=== PATIENT | male | born 1965 | race African-American/Black ===

== ENCOUNTER 2018-04-02 17:16 | Inpatient (IN) | payer SELFPAY ==
[~2018-04-02] VITALS: Ht 172.7 cm; Wt 76.7 kg
[2018-04-02] VITALS (10 sets, daily range): BP systolic 126–221; BP diastolic 75–105
[2018-04-02] MEDS ORDERED: Etomidate 40mg/20ml Inj IV ONE (17:30)
--- NOTE | 2018-04-02 17:34 | Emergency Room Report ---
History of Present Illness General Chief Complaint: Overdose Source: Patient, EMS Present Illness HPI Patient's eyes rolled back at the [facility] and then he became unresponsive. Paramedics found him with pinpoint pupils and gave Narcan. He "woke up" at that time and was combative but not following commands. He tore out the IVs and also need to be restrained. At that time he was given 10 mg of Versed. After that he gradually became unresponsive again.. Little other history is available on the patient. Unknown if drug usage or alcohol Some suggestion that he might have been carrying a gun. (None found) (See clinical course) Allergies: Coded Allergies: UNABLE TO ASSESS (Unverified , 04/02/18) Patient History Limited by: medical condition Past Medical History: see triage record Social History: Reports: drug use - THC; Denies: smoking Social History Narrative lives with sig other Reviewed Nursing Documentation: PMH: Agreed; PSxH: Agreed Nursing Documentation-PMH Past Medical History Deferred: Patient Unconscious Past Medical History: Deferred Review of Systems All Other Systems: limited Physical Exam Vital Signs Date Time Temp Pulse Resp B/P (MAP) Pulse Ox O2 Delivery O2 Flow Rate FiO2 04/02/18 17:15 97.5 78 24 138/75 100 Room Air 97.5 Sp02 EP Interpretation: reviewed, normal General Appearance: Stupor Head: normocephalic, atraumatic Eyes: bilateral eye PERRL, bilateral eye Scleral Injection ENT: moist mucus membranes - no gag Neck: supple Respiratory: lungs clear, normal breath sounds Cardiovascular #1: regular rate, rhythm Cardiovascular #2: 2+ radial (R) Gastrointestinal: normal inspection, non tender, no mass, non-distended, decreased bowel sounds Musculoskeletal: back normal, other - flaccid Neurologic: no Babinski - not respond, other - not respond to pain, flaccid, no gag Psychiatric: other - stupor Reflexes: 0 knee (R), 0 knee (L) Skin: normal inspection, warm/dry Procedures Critical Care Time Critical Care Time Total Critical Care Time: 60 min bedside evaluation and treatment excludes procedures (EKG, intubation). Reason for critical care: stupor, intubation, sedation, repeated evaluations Possible complications: hypotension, hypertension, MT, shock, arrhythmias, metabolic acidosis, end organ damage, respiratory failure. Interventions: intubation, sedation, antibiotics, repeat evaluations, further history from EMS and family, discussion with admitting MDs Course: Patient presented with alleged OD and "agitated delirium" post narcan and versed. Lack of airway protection - intubated. No bleed. Sedated and repeated evaluations for this. Antibiotics ordered for possible infiltrate. Family with h/o recent seizure. Keppra loaded. Sedation adequate. Discussed with admitting MD and critical care MD. Consultations: nursing staff, EMS, family, RT, pharmacy Performed by: Dr. Blake Tolerated well condition = critical Intubation Intubation : Consent: Emergent Tube Size (cm): 7.5 Medications: Etomidate Intubation Complications: no complications Post Intubation Xray: Yes Attempts: One Patient Tolerated: Well Complications: None Medical Decision Making Medical: Other Reaction to Intervention: No change Restraint Reassesment I, Sean Blake MD, have personally evaluated this patient. Laboratory tests have been ordered. The patient is deemed to present a danger to themselves and/ or others. This is based on the history provided by EMS. Patient evaluation reveals the following: stupor. These restraints were initially ordered and applied based on hx by EMS. Once patient intubated and sedated, behavioral restraints removed and non-behavioral restraints applied. Diagnostic Impression: Primary Impression: Altered level of consciousness Additional Impressions: Seizure Lack of airway protectin ER Course Patient is unresponsive and has a poor gag reflex. The patient was immediately intubated. We need to exclude bleed and other overdose. Complex history. Other considerations are seizure, syncope, PCP, other ingestions, sepsis, electrolyte abnormalities amongst others. Evaluation with EKG, labs, CXR. IV hydration. EKG without injury. CXR ET good placement. CT without bleed. Labs normal CBC , CMP. Tox + THC (benzos after versed in field and here). Antibiotics to cover possible infiltrate read by radiologist (not seen by me). Patient had propofol stopped due to low heart rate. Patient awoke and was moving all 4. Not fully responsive to commands to calm. Versed given and propofol restarted. states seen 03/17 for seizure. Signed out MELANIEA Gurdeep. No meds given. Tox screen negative for opiates. Again patient with light sedation. Propofol increased and versed repeated. ABG acceptable. Loaded with Keppra in ED. Clinical course most consistent with seizure and then post ictal event. Admit ICU, Dr. Saeed. Laboratory Tests Test 04/02/18 17:37 04/02/18 20:34 04/02/18 21:15 White Blood Count 3.9 K/UL (4.8-10.8) L Red Blood Count 4.20 M/UL (4.70-6.10) L Hemoglobin 13.6 G/DL (14.2-18.0) L Hematocrit 40.9 % (42.0-52.0) L Mean Corpuscular Volume 98 FL (80-99) Mean Corpuscular Hemoglobin 32.3 PG (27.0-31.0) H Mean Corpuscular Hemoglobin Concent 33.1 G/DL (32.0-36.0) Red Cell Distribution Width 11.8 % (11.6-14.8) Platelet Count 201 K/UL (150-450) Mean Platelet Volume 5.3 FL (6.5-10.1) L Neutrophils (%) (Auto) 53.6 % (45.0-75.0) Lymphocytes (%) (Auto) 34.4 % (20.0-45.0) Monocytes (%) (Auto) 10.0 % (1.0-10.0) Eosinophils (%) (Auto) 1.0 % (0.0-3.0) Basophils (%) (Auto) 1.0 % (0.0-2.0) Sodium Level 142 MMOL/L (136-145) Potassium Level 3.7 MMOL/L (3.5-5.1) Chloride Level 107 MMOL/L (98-107) Carbon Dioxide Level 23 MMOL/L (21-32) Anion Gap 13 mmol/L (5-15) Blood Urea Nitrogen 8 mg/dL (7-18) Creatinine 1.2 MG/DL (0.55-1.30) Estimate Glomerular Filtration Rate > 60 mL/min (>60) Glucose Level 91 MG/DL (74-106) Calcium Level 9.3 MG/DL (8.5-10.1) Total Bilirubin 0.6 MG/DL (0.2-1.0) Aspartate Amino Transferase (AST) 29 U/L (15-37) Alanine Aminotransferase (ALT) 33 U/L (12-78) Alkaline Phosphatase 76 U/L (46-116) Total Creatine Kinase 167 U/L (26-308) Troponin I 0.000 ng/mL (0.000-0.056) Total Protein 7.6 G/DL (6.4-8.2) Albumin 3.9 G/DL (3.4-5.0) Globulin 3.7 g/dL Albumin/Globulin Ratio 1.1 (1.0-2.7) Triglycerides Level 95 MG/DL (30-150) Thyroid Stimulating Hormone (TSH) 2.813 uiU/mL (0.358-3.740) Salicylates Level 6.1 ug/mL (2.8-20) Acetaminophen Level < 2 MCG/ML (10-30) L Serum Alcohol < 3 mg/dL Arterial Blood pH 7.385 (7.350-7.450) Arterial Blood Partial Pressure CO2 39.9 mmHg (35.0-45.0) Arterial Blood Partial Pressure O2 172.8 mmHg (75.0-100.0) H Arterial Blood HCO3 23.3 mmol/L (22.0-26.0) Arterial Blood Oxygen Saturation 98.9 % (92.0-98.0) H Arterial Blood Base Excess -1.5 Suman Test Positive Urine Color Pale yellow Urine Appearance Clear Urine pH 7 (4.5-8.0) Urine Specific [place] 1.010 (1.005-1.035) Urine Protein 1+ (NEGATIVE) H Urine Glucose (UA) Negative (NEGATIVE) Urine Ketones 1+ (NEGATIVE) H Urine Blood 2+ (NEGATIVE) H Urine Nitrite Negative (NEGATIVE) Urine Bilirubin Negative (NEGATIVE) Urine Urobilinogen 1 MG/DL (0.0-1.0) H Urine Leukocyte Esterase Negative (NEGATIVE) Urine RBC 2-4 /HPF (0 - 0) H Urine WBC 0-2 /HPF (0 - 0) Urine Squamous Epithelial Cells Occasional /LPF Urine Bacteria Occasional /HPF (NONE) Urine Opiates Screen Negative (NEGATIVE) Urine Barbiturates Screen Negative (NEGATIVE) Phencyclidine (PCP) Screen Negative (NEGATIVE) Urine Amphetamines Screen Negative (NEGATIVE) Urine Benzodiazepines Screen Positive (NEGATIVE) H Urine Cocaine Screen Negative (NEGATIVE) Urine Marijuana (THC) Screen Positive (NEGATIVE) H EKG Diagnostic Results Rate: normal Rhythm: NSR ST Segments: no acute changes Rhythm Strip Diag. Results EP Interpretation: yes Rhythm: NSR, no PVC's, no ectopy Chest X-Ray Diagnostic Results Chest X-Ray Diagnostic Results : Chest X-Ray Ordered: Yes # of Views/Limited/Complete: 1 View Indication: Chest Pain EP Interpretation: Yes Interpretation: no consolidation, no effusion, no pneumothorax, other - ET OK Impression: Other Electronically Signed by: Electronically signed by Sean Blake MD CT/MRI/US Diagnostic Results CT/MRI/US Diagnostic Results : Imaging Test Ordered: head Impression no bleed, mass, fx Last Vital Signs Date Time Temp Pulse Resp B/P (MAP) Pulse Ox O2 Delivery O2 Flow Rate FiO2 04/02/18 21:11 94 17 50 04/02/18 20:03 149/82 Mechanical Ventilator 04/02/18 17:30 97.6 99 Status: improved Disposition: ADMITTED INPATIENT Condition: Critical Scripts Unable to Obtain Active Prescriptions or Reported Meds Sean Blake M.D. Apr 02, 2018 17:34
[2018-04-02 18:03] LABS: HEMATOCRIT 40.9 % (42.0-52.0); HEMOGLOBIN 13.6 G/DL (14.2-18.0); LYMPHOCYTES % (AUTO) 34.4 % (20.0-45.0); MEAN CORPUSCULAR VOLUME 98 FL (80-99); NEUTROPHILS % (AUTO) 53.6 % (45.0-75.0); PLATELET COUNT 201 K/UL (150-450); RED CELL DISTRIBUTION WIDTH 11.8 % (11.6-14.8); WHITE BLOOD COUNT 3.9 K/UL (4.8-10.8)
[2018-04-02 18:20] LABS: ANION GAP 13 mmol/L (5-15); BLOOD UREA NITROGEN 8 mg/dL (7-18); CALCIUM 9.3 MG/DL (8.5-10.1); CARBON DIOXIDE 23 MMOL/L (21-32); CHLORIDE 107 MMOL/L (98-107); CREATININE 1.2 MG/DL (0.55-1.30); POTASSIUM 3.7 MMOL/L (3.5-5.1); SODIUM 142 MMOL/L (136-145)
[2018-04-02 18:34] LABS: ALANINE AMINOTRANSFERASE 33 U/L (12-78); ALBUMIN 3.9 G/DL (3.4-5.0); ALBUMIN/GLOBULIN RATIO 1.1 (1.0-2.7); ALKALINE PHOSPHATASE 76 U/L (46-116); ASPARTATE AMINO TRANSFERASE 29 U/L (15-37); BILIRUBIN,TOTAL 0.6 MG/DL (0.2-1.0); CREATINE KINASE 167 U/L (26-308); TRIGLYCERIDES 95 MG/DL (30-150)
[2018-04-02] MEDS ORDERED: Cefepime HCl 1 GM in D5W 55 ML IVPB ONE (18:45)
[2018-04-02] MEDS ORDERED: Nitroglycerin Subl 0.4mg tab SL PRN (18:45)
--- NOTE | 2018-04-02 18:45 | Pulmonolgy Critical Care Note ---
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 Critical Care - Objective Last 24 Hour Vital Signs Date Time Temp Pulse Resp B/P (MAP) Pulse Ox O2 Delivery O2 Flow Rate FiO2 04/02/18 18:39 16 210/104 Mechanical Ventilator 04/02/18 18:24 18 157/100 Mechanical Ventilator 04/02/18 17:15 97.5 78 24 138/75 100 Room Air 97.5 04/02/18 15:29 66 16 50 Status: awake, sedated Condition: critical Neck: full ROM Lungs: clear Heart: HR/BP stable, regular Abdomen: active bowel sounds Extremities: no C/C/E Critical Care - Subjective ROS Limited/Unobtainable: Yes ICU Day: 1 Condition: critical EKG Rhythm: Sinus Rhythm Vent Support Breath Rate: 16 Vent Support Mode: AC Vent Tidal Volume: 650 Sputum Amount: None PIP: 25 ET-Tube: 7.5 ET Position: 25 Labs: Laboratory Tests Test 04/02/18 17:37 White Blood Count 3.9 K/UL (4.8-10.8) L Red Blood Count 4.20 M/UL (4.70-6.10) L Hemoglobin 13.6 G/DL (14.2-18.0) L Hematocrit 40.9 % (42.0-52.0) L Mean Corpuscular Volume 98 FL (80-99) Mean Corpuscular Hemoglobin 32.3 PG (27.0-31.0) H Mean Corpuscular Hemoglobin Concent 33.1 G/DL (32.0-36.0) Red Cell Distribution Width 11.8 % (11.6-14.8) Platelet Count 201 K/UL (150-450) Mean Platelet Volume 5.3 FL (6.5-10.1) L Neutrophils (%) (Auto) 53.6 % (45.0-75.0) Lymphocytes (%) (Auto) 34.4 % (20.0-45.0) Monocytes (%) (Auto) 10.0 % (1.0-10.0) Eosinophils (%) (Auto) 1.0 % (0.0-3.0) Basophils (%) (Auto) 1.0 % (0.0-2.0) Sodium Level 142 MMOL/L (136-145) Potassium Level 3.7 MMOL/L (3.5-5.1) Chloride Level 107 MMOL/L (98-107) Carbon Dioxide Level 23 MMOL/L (21-32) Anion Gap 13 mmol/L (5-15) Blood Urea Nitrogen 8 mg/dL (7-18) Creatinine 1.2 MG/DL (0.55-1.30) Estimat Glomerular Filtration Rate > 60 mL/min (>60) Glucose Level 91 MG/DL (74-106) Calcium Level 9.3 MG/DL (8.5-10.1) Total Bilirubin 0.6 MG/DL (0.2-1.0) Aspartate Amino Transf (AST/SGOT) 29 U/L (15-37) Alanine Aminotransferase (ALT/SGPT) 33 U/L (12-78) Alkaline Phosphatase 76 U/L (46-116) Total Creatine Kinase 167 U/L (26-308) Troponin I 0.000 ng/mL (0.000-0.056) Total Protein 7.6 G/DL (6.4-8.2) Albumin 3.9 G/DL (3.4-5.0) Globulin 3.7 g/dL Albumin/Globulin Ratio 1.1 (1.0-2.7) Triglycerides Level 95 MG/DL (30-150) Thyroid Stimulating Hormone (TSH) 2.813 uiU/mL (0.358-3.740) Salicylates Level 6.1 ug/mL (2.8-20) Acetaminophen Level < 2 MCG/ML (10-30) L Serum Alcohol < 3 mg/dL Aleshia Ya MD Apr 02, 2018 18:45
[2018-04-02] MEDS ORDERED: Albuterol/Ipratropium 3ml neb HHN PRN (18:46)
[2018-04-02] MEDS ORDERED: Midazolam 2mg/2ml Inj ONE (19:00)
[2018-04-02] MEDS ORDERED: Midazolam 2mg/2ml Inj IVP ONE ×2 (19:00→20:00)
[2018-04-02] MEDS ORDERED: Midazolam 2mg/2ml Inj IVP SCH (20:00)
[2018-04-02] MEDS ORDERED: levETIRAcetam 1,000mg/NS100ml 100 ML IVPB ONE (20:15)
[2018-04-02] MEDS ORDERED: Cefepime 1gm vial ONE (21:23)
[2018-04-02 21:30] LABS: APPEARANCE,URINE CLEAR; BILIRUBIN, URINE NEGATIVE (NEGATIVE); COLOR,URINE PALE YELLOW; GLUCOSE, URINE (UA) NEGATIVE (NEGATIVE); KETONES,URINE 1+ (NEGATIVE); LEUKOCYTE ESTERASE ,URINE NEGATIVE (NEGATIVE); NITRITE,URINE NEGATIVE (NEGATIVE); PH,URINE 7 (4.5-8.0); PROTEIN,URINE 1+ (NEGATIVE); UROBILINOGEN,URINE 1 MG/DL (0.0-1.0)
[2018-04-02] MEDS: LORazepam Inj 2mg/ml 1ml IV PRN (22:25)
[2018-04-02] MEDS: D5 1/2NS 1,000 ML IV SCH (22:26)
[2018-04-02] MEDS: Heparin 5000 units/ml inj SUBQ SCH (22:34)
[2018-04-02] MEDS: Morphine Sulfate 4mg/ml Inj (IV USE ONLY) IVP PRN (23:04)
[2018-04-03] VITALS (25 sets, daily range): BP systolic 123–187; BP diastolic 55–102
[2018-04-03] MEDS: LORazepam Inj 2mg/ml 1ml IV PRN ×2 (03:23→06:00)
[2018-04-03] MEDS: Morphine Sulfate 4mg/ml Inj (IV USE ONLY) IVP PRN (03:38)
[2018-04-03 06:50] LABS: BASOPHILS % (AUTO) 0.9 % (0.0-2.0); EOSINOPHILS % (AUTO) 0.5 % (0.0-3.0); HEMATOCRIT 37.3 % (42.0-52.0); HEMOGLOBIN 12.3 G/DL (14.2-18.0); LYMPHOCYTES % (AUTO) 30.6 % (20.0-45.0); MEAN CORPUSCULAR VOLUME 95 FL (80-99); MONOCYTES % (AUTO) 10.6 % (1.0-10.0); NEUTROPHILS % (AUTO) 57.4 % (45.0-75.0); PLATELET COUNT 154 K/UL (150-450); RED BLOOD COUNT 3.93 M/UL (4.70-6.10); RED CELL DISTRIBUTION WIDTH 11.8 % (11.6-14.8); WHITE BLOOD COUNT 5.8 K/UL (4.8-10.8)
[2018-04-03 06:58] LABS: INR 1.1 (0.9-1.1)
[2018-04-03 07:30] LABS: ALANINE AMINOTRANSFERASE 45 U/L (12-78); ALBUMIN 3.1 G/DL (3.4-5.0); ALKALINE PHOSPHATASE 68 U/L (46-116); ASPARTATE AMINO TRANSFERASE 42 U/L (15-37); BILIRUBIN,DIRECT 0.2 MG/DL (0.0-0.3); BILIRUBIN,TOTAL 1.3 MG/DL (0.2-1.0); LACTATE DEHYDROGENASE 187 U/L (81-234); PHOSPHORUS 1.3 MG/DL (2.5-4.9)
--- NOTE | 2018-04-03 08:23 | Diagnostic Imaging Report ---
Indication: Shortness of breath Technique: One view of the chest Comparison: none Findings: There is atelectasis at the left lung base. There is equivocal minimal blunting of left costophrenic sulcus The heart size is normal. Endotracheal tube is in place, tip projecting approximately 4 cm above the cuauhtemoc. Impression: Satisfactory endotracheal intubation Left basilar atelectasis Equivocal minimal left costophrenic sulcus blunting; if real, could indicate a small pleural effusion
--- NOTE | 2018-04-03 08:28 | Diagnostic Imaging Report ---
Indication: Altered level of consciousness Technique: Continuous helical CT scanning of the head was performed without intravenous contrast material. Axial and coronal 5 mm sections were generated. Radiation dose was minimized using automated exposure control Dose: Total Dose Length Product - DLP 1562.[address] Dose Index - CTDIvol(s) 70.38 mGy. Comparison: none Findings: The ventricular system is normal in size and configuration. There is no shift of midline structures. No abnormal extra-axial fluid collections are noted. There is no evidence of intracerebral bleeding. No other abnormal high or low density areas are noted within the brain. Considerable mucosal thickening is seen in the posterior nasal fossa Impression: Normal CT scan of the head without contrast material. This agrees with the preliminary interpretation provided overnight by [facility] teleradiology service. The CT scanner at [facility] is accredited by the [employer] and the scans are performed using protocols designed to limit radiation exposure to as low as reasonably achievable to attain images of sufficient resolution adequate for diagnostic evaluation.
[2018-04-03] MEDS: D5 1/2NS 1,000 ML IV SCH ×2 (08:57→22:29)
--- NOTE | 2018-04-03 09:35 | Pulmonolgy Critical Care Note ---
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 Discussed with: nurses Critical Care - Objective Last 24 Hour Vital Signs Date Time Temp Pulse Resp B/P (MAP) Pulse Ox O2 Delivery O2 Flow Rate FiO2 04/03/18 09:00 69 18 144/85 (104) 100 04/03/18 08:00 35 04/03/18 08:00 98.5 70 16 148/89 (108) 100 98.5 04/03/18 08:00 66 04/03/18 07:00 72 16 123/80 (94) 100 04/03/18 06:55 71 16 45 04/03/18 06:00 62 16 153/96 (115) 100 04/03/18 06:00 45 04/03/18 05:21 62 16 45 04/03/18 05:00 62 16 147/91 (109) 100 04/03/18 04:00 Mechanical Ventilator 04/03/18 04:00 45.0 04/03/18 04:00 65 04/03/18 04:00 98.3 60 16 141/87 (105) 100 98.3 04/03/18 03:30 67 16 45 04/03/18 03:00 65 16 130/92 (105) 100 04/03/18 02:00 65 16 155/89 (111) 100 04/03/18 01:00 65 16 133/82 (99) 100 04/03/18 00:55 62 16 45 04/03/18 00:44 187/101 04/03/18 00:00 45.0 04/03/18 00:00 52 04/03/18 00:00 45 04/03/18 00:00 Mechanical Ventilator 04/03/18 00:00 97.6 52 16 187/102 (130) 100 97.6 04/02/18 23:00 49 16 205/102 (136) 100 04/02/18 22:40 43 16 45 04/02/18 22:22 58 16 183/99 100 Mechanical Ventilator 50 04/02/18 22:22 98.0 58 16 183/99 100 Mechanical Ventilator 50 04/02/18 22:12 16 183/99 Mechanical Ventilator 50 04/02/18 22:00 97.6 46 16 207/101 (136) 100 97.6 04/02/18 22:00 47 04/02/18 22:00 Mechanical Ventilator 04/02/18 22:00 Mechanical Ventilator 04/02/18 22:00 45.0 04/02/18 21:40 16 219/101 Mechanical Ventilator 45 04/02/18 21:20 56 16 170/98 100 Mechanical Ventilator 50 04/02/18 21:15 16 170/98 Mechanical Ventilator 50 04/02/18 21:11 94 17 50 04/02/18 20:20 70 16 157/83 100 Mechanical Ventilator 50 04/02/18 20:03 16 149/82 Mechanical Ventilator 50 04/02/18 19:48 16 173/97 Mechanical Ventilator 50 04/02/18 19:33 16 219/108 Mechanical Ventilator 50 04/02/18 19:30 64 18 50 04/02/18 19:30 16 219/108 Mechanical Ventilator 50 04/02/18 19:20 88 17 221/105 100 Mechanical Ventilator 50 04/02/18 19:15 16 194/90 Mechanical Ventilator 04/02/18 18:39 16 210/104 Mechanical Ventilator 04/02/18 18:24 18 157/100 Mechanical Ventilator 04/02/18 18:20 97.5 53 16 126/76 100 Mechanical Ventilator 50 97.5 04/02/18 17:30 97.6 88 20 99 Mechanical Ventilator 04/02/18 17:27 97.8 84 16 94 Room Air 04/02/18 17:20 97.5 75 24 138/75 100 Room Air 50 97.5 04/02/18 17:20 78 24 Room Air 50 04/02/18 17:15 97.5 78 24 138/75 100 Room Air 97.5 04/02/18 15:29 66 16 50 Status: awake Condition: critical HEENT: atraumatic Lungs: clear Heart: HR/BP stable, HR/BP unstable, regular Abdomen: active bowel sounds Extremities: no C/C/E, edema Micro: Microbiology Date/Time Source Procedure Growth Status 04/02/18 21:15 Rectum Received Accucheck: 73 Critical Care - Subjective ROS Limited/Unobtainable: Yes ICU Day: 2 Interval Events: awake, following commands FI02: 35 Vent Support Breath Rate: 16 Vent Support Mode: AC Vent Tidal Volume: 650 Sputum Amount: Small PIP: 16 I&O: Intake and Output 04/02/18 04/03/18 19:00 07:00 Intake Total 675 ml Output Total 770 ml Balance -95 ml Intake Oral 0 ml IV Total 675 ml Output Urine Total 770 ml Stool Total 0 ml CXR: clear ET-Tube: 7.5 ET Position: 25 Labs: Laboratory Tests Test 04/02/18 17:37 04/02/18 20:34 04/02/18 21:15 04/03/18 06:30 White Blood Count 3.9 K/UL (4.8-10.8) L 5.8 K/UL (4.8-10.8) Red Blood Count 4.20 M/UL (4.70-6.10) L 3.93 M/UL (4.70-6.10) L Hemoglobin 13.6 G/DL (14.2-18.0) L 12.3 G/DL (14.2-18.0) L Hematocrit 40.9 % (42.0-52.0) L 37.3 % (42.0-52.0) L Mean Corpuscular Volume 98 FL (80-99) 95 FL (80-99) Mean Corpuscular Hemoglobin 32.3 PG (27.0-31.0) H 31.2 PG (27.0-31.0) H Mean Corpuscular Hemoglobin Concent 33.1 G/DL (32.0-36.0) 32.8 G/DL (32.0-36.0) Red Cell Distribution Width 11.8 % (11.6-14.8) 11.8 % (11.6-14.8) Platelet Count 201 K/UL (150-450) 154 K/UL (150-450) Mean Platelet Volume 5.3 FL (6.5-10.1) L 5.4 FL (6.5-10.1) L Neutrophils (%) (Auto) 53.6 % (45.0-75.0) 57.4 % (45.0-75.0) Lymphocytes (%) (Auto) 34.4 % (20.0-45.0) 30.6 % (20.0-45.0) Monocytes (%) (Auto) 10.0 % (1.0-10.0) 10.6 % (1.0-10.0) H Eosinophils (%) (Auto) 1.0 % (0.0-3.0) 0.5 % (0.0-3.0) Basophils (%) (Auto) 1.0 % (0.0-2.0) 0.9 % (0.0-2.0) Sodium Level 142 MMOL/L (136-145) Potassium Level 3.7 MMOL/L (3.5-5.1) Chloride Level 107 MMOL/L (98-107) Carbon Dioxide Level 23 MMOL/L (21-32) Anion Gap 13 mmol/L (5-15) Blood Urea Nitrogen 8 mg/dL (7-18) Creatinine 1.2 MG/DL (0.55-1.30) Estimat Glomerular Filtration Rate > 60 mL/min (>60) Glucose Level 91 MG/DL (74-106) Calcium Level 9.3 MG/DL (8.5-10.1) Total Bilirubin 0.6 MG/DL (0.2-1.0) 1.3 MG/DL (0.2-1.0) H Aspartate Amino Transf (AST/SGOT) 29 U/L (15-37) 42 U/L (15-37) H Alanine Aminotransferase (ALT/SGPT) 33 U/L (12-78) 45 U/L (12-78) Alkaline Phosphatase 76 U/L (46-116) 68 U/L (46-116) Total Creatine Kinase 167 U/L (26-308) Troponin I 0.000 ng/mL (0.000-0.056) Total Protein 7.6 G/DL (6.4-8.2) 6.2 G/DL (6.4-8.2) L Albumin 3.9 G/DL (3.4-5.0) 3.1 G/DL (3.4-5.0) L Globulin 3.7 g/dL Albumin/Globulin Ratio 1.1 (1.0-2.7) Triglycerides Level 95 MG/DL (30-150) Thyroid Stimulating Hormone (TSH) 2.813 uiU/mL (0.358-3.740) Salicylates Level 6.1 ug/mL (2.8-20) Acetaminophen Level < 2 MCG/ML (10-30) L Serum Alcohol < 3 mg/dL Arterial Blood pH 7.385 (7.350-7.450) Arterial Blood Partial Pressure CO2 39.9 mmHg (35.0-45.0) Arterial Blood Partial Pressure O2 172.8 mmHg (75.0-100.0) H Arterial Blood HCO3 23.3 mmol/L (22.0-26.0) Arterial Blood Oxygen Saturation 98.9 % (92.0-98.0) H Arterial Blood Base Excess -1.5 Suman Test Positive Urine Color Pale yellow Urine Appearance Clear Urine pH 7 (4.5-8.0) Urine Specific [place] 1.010 (1.005-1.035) Urine Protein 1+ (NEGATIVE) H Urine Glucose (UA) Negative (NEGATIVE) Urine Ketones 1+ (NEGATIVE) H Urine Blood 2+ (NEGATIVE) H Urine Nitrite Negative (NEGATIVE) Urine Bilirubin Negative (NEGATIVE) Urine Urobilinogen 1 MG/DL (0.0-1.0) H Urine Leukocyte Esterase Negative (NEGATIVE) Urine RBC 2-4 /HPF (0 - 0) H Urine WBC 0-2 /HPF (0 - 0) Urine Squamous Epithelial Cells Occasional /LPF Urine Bacteria Occasional /HPF (NONE) Urine Opiates Screen Negative (NEGATIVE) Urine Barbiturates Screen Negative (NEGATIVE) Phencyclidine (PCP) Screen Negative (NEGATIVE) Urine Amphetamines Screen Negative (NEGATIVE) Urine Benzodiazepines Screen Positive (NEGATIVE) H Urine Cocaine Screen Negative (NEGATIVE) Urine Marijuana (THC) Screen Positive (NEGATIVE) H Prothrombin Time 11.4 SEC (9.30-11.50) Prothromb Time International Ratio 1.1 (0.9-1.1) Activated Partial Thromboplast Time 26 SEC (23-33) Phosphorus Level 1.3 MG/DL (2.5-4.9) L Direct Bilirubin 0.2 MG/DL (0.0-0.3) Lactate Dehydrogenase 187 U/L (81-234) Aleshia Ya MD Apr 03, 2018 09:35
[2018-04-03] MEDS: Pantoprazole Inj IVP SCH (09:46)
[2018-04-03] MEDS: Heparin 5000 units/ml inj SUBQ SCH ×2 (09:47→21:26)
[2018-04-03 10:04] LABS: ANION GAP 9 mmol/L (5-15); BLOOD UREA NITROGEN 8 mg/dL (7-18); CALCIUM 8.6 MG/DL (8.5-10.1); CARBON DIOXIDE 21 MMOL/L (21-32); CHLORIDE 109 MMOL/L (98-107); CREATININE 0.9 MG/DL (0.55-1.30); POTASSIUM 3.4 MMOL/L (3.5-5.1); SODIUM 139 MMOL/L (136-145)
--- NOTE | 2018-04-03 13:56 | Diagnostic Imaging Report ---
APPROVED REPORT CPT Code: 72427 Vascular Symptoms Comments: Altered LOC Doppler Spectral Velocity Analysis RightLeft RIGHT SIDE: CCA - Imaging reveals no significant plaque within the extracranial carotid arteries. The Doppler spectral flow analysis is within normal limits throughout the extracranial carotid arteries. VERTEBRAL - The vertebral artery is within normal limits. LEFT SIDE: CCA/ECA - Imaging reveals no significant plaque in the common carotid and external carotid arteries. ICA - Imaging reveals irregular plaque in the internal carotid artery. The Doppler signal indicates the degree of stenosis is minimal (10%) in the internal carotid artery. VERTEBRAL - The vertebral artery is within normal limits.
--- NOTE | 2018-04-03 18:57 | Cardiology Progress Note ---
Assessment/Plan Assessment/Plan The patient is seen and examined, full consultation note will be dictated. Objective Last 24 Hour Vital Signs Date Time Temp Pulse Resp B/P (MAP) Pulse Ox O2 Delivery O2 Flow Rate FiO2 04/03/18 18:00 64 12 169/80 (109) 100 04/03/18 17:00 73 14 169/97 (121) 100 04/03/18 16:00 3.0 04/03/18 16:00 60 04/03/18 16:00 98.6 60 16 160/55 (90) 100 98.6 04/03/18 16:00 Nasal Cannula 3.0 04/03/18 15:00 80 14 151/62 (91) 100 04/03/18 14:00 75 20 166/102 (123) 100 04/03/18 13:00 74 16 151/87 (108) 100 04/03/18 12:00 3.0 04/03/18 12:00 Nasal Cannula 3.0 04/03/18 12:00 75 04/03/18 12:00 98.0 87 16 148/88 (108) 100 98.0 04/03/18 11:00 69 15 162/85 (110) 100 04/03/18 10:00 75 18 134/78 (96) 100 04/03/18 10:00 3.0 04/03/18 09:58 81 18 Nasal Cannula 2.0 28 04/03/18 09:55 Nasal Cannula 2.0 28 04/03/18 09:45 30 04/03/18 09:40 75 18 30 04/03/18 09:40 100 04/03/18 09:30 72 16 35 04/03/18 09:00 69 18 144/85 (104) 100 04/03/18 08:00 Mechanical Ventilator 04/03/18 08:00 35 04/03/18 08:00 98.5 70 16 148/89 (108) 100 98.5 04/03/18 08:00 66 04/03/18 07:00 72 16 123/80 (94) 100 04/03/18 06:55 71 16 45 04/03/18 06:00 62 16 153/96 (115) 100 04/03/18 06:00 45 04/03/18 05:21 62 16 45 04/03/18 05:00 62 16 147/91 (109) 100 04/03/18 04:00 Mechanical Ventilator 04/03/18 04:00 45.0 04/03/18 04:00 65 04/03/18 04:00 98.3 60 16 141/87 (105) 100 98.3 04/03/18 03:30 67 16 45 04/03/18 03:00 65 16 130/92 (105) 100 04/03/18 02:00 65 16 155/89 (111) 100 04/03/18 01:00 65 16 133/82 (99) 100 04/03/18 00:55 62 16 45 04/03/18 00:44 187/101 04/03/18 00:00 45.0 04/03/18 00:00 52 04/03/18 00:00 45 04/03/18 00:00 Mechanical Ventilator 04/03/18 00:00 97.6 52 16 187/102 (130) 100 97.6 04/02/18 23:00 49 16 205/102 (136) 100 04/02/18 22:40 43 16 45 04/02/18 22:22 58 16 183/99 100 Mechanical Ventilator 50 04/02/18 22:22 98.0 58 16 183/99 100 Mechanical Ventilator 50 04/02/18 22:12 16 183/99 Mechanical Ventilator 50 04/02/18 22:00 97.6 46 16 207/101 (136) 100 97.6 04/02/18 22:00 47 04/02/18 22:00 Mechanical Ventilator 04/02/18 22:00 Mechanical Ventilator 04/02/18 22:00 45.0 04/02/18 21:40 16 219/101 Mechanical Ventilator 45 04/02/18 21:20 56 16 170/98 100 Mechanical Ventilator 50 04/02/18 21:15 16 170/98 Mechanical Ventilator 50 04/02/18 21:11 94 17 50 04/02/18 20:20 70 16 157/83 100 Mechanical Ventilator 50 04/02/18 20:03 16 149/82 Mechanical Ventilator 50 18 19:48 16 173/97 Mechanical Ventilator 50 04/02/18 19:33 16 219/108 Mechanical Ventilator 50 18 19:30 64 18 50 04/02/18 19:30 16 219/108 Mechanical Ventilator 50 8/29/18 19:20 88 17 221/105 100 Mechanical Ventilator 50 04/02/18 19:15 16 194/90 Mechanical Ventilator Intake and Output 04/02/18 04/03/18 19:00 07:00 Intake Total 675 ml Output Total 770 ml Balance -95 ml Intake Oral 0 ml IV Total 675 ml Output Urine Total 770 ml Stool Total 0 ml Laboratory Tests Test 04/02/18 20:34 04/02/18 21:15 04/03/18 06:30 04/03/18 12:20 Arterial Blood pH 7.385 (7.350-7.450) 7.383 (7.350-7.450) Arterial Blood Partial Pressure CO2 39.9 mmHg (35.0-45.0) 39.8 mmHg (35.0-45.0) Arterial Blood Partial Pressure O2 172.8 mmHg (75.0-100.0) H 97.5 mmHg (75.0-100.0) Arterial Blood HCO3 23.3 mmol/L (22.0-26.0) 23.2 mmol/L (22.0-26.0) Arterial Blood Oxygen Saturation 98.9 % (92.0-98.0) H 97.0 % (92.0-98.0) Arterial Blood Base Excess -1.5 -1.7 Suman Test Positive Positive Urine Color Pale yellow Urine Appearance Clear Urine pH 7 (4.5-8.0) Urine Specific Jber 1.010 (1.005-1.035) Urine Protein 1+ (NEGATIVE) H Urine Glucose (UA) Negative (NEGATIVE) Urine Ketones 1+ (NEGATIVE) H Urine Blood 2+ (NEGATIVE) H Urine Nitrite Negative (NEGATIVE) Urine Bilirubin Negative (NEGATIVE) Urine Urobilinogen 1 MG/DL (0.0-1.0) H Urine Leukocyte Esterase Negative (NEGATIVE) Urine RBC 2-4 /HPF (0 - 0) H Urine WBC 0-2 /HPF (0 - 0) Urine Squamous Epithelial Cells Occasional /LPF Urine Bacteria Occasional /HPF (NONE) Urine Opiates Screen Negative (NEGATIVE) Urine Barbiturates Screen Negative (NEGATIVE) Phencyclidine (PCP) Screen Negative (NEGATIVE) Urine Amphetamines Screen Negative (NEGATIVE) Urine Benzodiazepines Screen Positive (NEGATIVE) H Urine Cocaine Screen Negative (NEGATIVE) Urine Marijuana (THC) Screen Positive (NEGATIVE) H White Blood Count 5.8 K/UL (4.8-10.8) Red Blood Count 3.93 M/UL (4.70-6.10) L Hemoglobin 12.3 G/DL (14.2-18.0) L Hematocrit 37.3 % (42.0-52.0) L Mean Corpuscular Volume 95 FL (80-99) Mean Corpuscular Hemoglobin 31.2 PG (27.0-31.0) H Mean Corpuscular Hemoglobin Concent 32.8 G/DL (32.0-36.0) Red Cell Distribution Width 11.8 % (11.6-14.8) Platelet Count 154 K/UL (150-450) Mean Platelet Volume 5.4 FL (6.5-10.1) L Neutrophils (%) (Auto) 57.4 % (45.0-75.0) Lymphocytes (%) (Auto) 30.6 % (20.0-45.0) Monocytes (%) (Auto) 10.6 % (1.0-10.0) H Eosinophils (%) (Auto) 0.5 % (0.0-3.0) Basophils (%) (Auto) 0.9 % (0.0-2.0) Prothrombin Time 11.4 SEC (9.30-11.50) Prothromb Time International Ratio 1.1 (0.9-1.1) Activated Partial Thromboplast Time 26 SEC (23-33) Sodium Level 139 MMOL/L (136-145) Potassium Level 3.4 MMOL/L (3.5-5.1) L Chloride Level 109 MMOL/L (98-107) H Carbon Dioxide Level 21 MMOL/L (21-32) Anion Gap 9 mmol/L (5-15) Blood Urea Nitrogen 8 mg/dL (7-18) Creatinine 0.9 MG/DL (0.55-1.30) Estimat Glomerular Filtration Rate > 60 mL/min (>60) Glucose Level 93 MG/DL (74-106) Calcium Level 8.6 MG/DL (8.5-10.1) Phosphorus Level 1.3 MG/DL (2.5-4.9) L Total Bilirubin 1.3 MG/DL (0.2-1.0) H Direct Bilirubin 0.2 MG/DL (0.0-0.3) Aspartate Amino Transf (AST/SGOT) 42 U/L (15-37) H Alanine Aminotransferase (ALT/SGPT) 45 U/L (12-78) Alkaline Phosphatase 68 U/L (46-116) Lactate Dehydrogenase 187 U/L (81-234) Total Protein 6.2 G/DL (6.4-8.2) L Albumin 3.1 G/DL (3.4-5.0) L Microbiology Date/Time Source Procedure Growth Status 04/02/18 21:15 Rectum Received Cesar Lewis MD Apr 03, 2018 18:57
[2018-04-03] MEDS: Atenolol 25mg tab ORAL SCH (20:11)
--- NOTE | 2018-04-03 23:37 | Cardiology Report ---
APPROVED REPORT EKG Measurement Heart [id number] [place] [id number] Normal sinus rhythm Possible Left atrial enlargement Septal infarct, age undetermined Abnormal ECG
--- NOTE | 2018-04-03 23:45 | History and Physical Report ---
DATE OF ADMISSION: 04/02/2018 TIME: 3 p.m. CONSULTANTS: 1. Aleshia Ya M.D. 2. Cesar Lewis M.D. 3. Padmini Patel M.D. 4. Lalo Rodríguez M.D. CHIEF COMPLAINT: Respiratory failure, possible seizure. BRIEF HISTORY: The patient is a 53-year-old male who lives at home, who was at [employer] apparently, had a seizure and passed out on the floor, brought to [facility], diagnosed the above. The patient went into respiratory failure, was intubated, but now subsequently extubated and was admitted in ICU. Currently, alert, now in bed, O2 NC, slight short of breath. No complaint. REVIEW OF SYSTEMS: No chest pain. Slight short of breath. No nausea, vomiting, or diarrhea. PAST MEDICAL HISTORY: Hypertension, [place] and seizure. PAST SURGICAL HISTORY: None. MEDICATIONS: Protonix, Apresoline, Catapres, heparin, , cefepime, dextrose, midazolam, Zofran, albuterol, morphine and lorazepam. ALLERGIES: Penicillin. SOCIAL HISTORY: No smoking. No alcohol. No intravenous drug abuse. FAMILY HISTORY: Noncontributory. Last similar seizure was about a week ago. PHYSICAL EXAMINATION: GENERAL: Calm in bed, O2 NC, oriented x3, in no acute distress. VITAL SIGNS: Temperature 98 degrees, pulse 84, respirations 20, and blood pressure 166/102. CARDIOVASCULAR: No murmur. LUNGS: Distant and clear. ABDOMEN: Bowel sounds positive. Nontender. Nondistended. EXTREMITIES: No cyanosis or edema. NEUROLOGIC: The patient moves all extremities, slightly weak. LABORATORY AND DIAGNOSTIC DATA: Hemoglobin 10.3, otherwise CBC is normal. BMP shows CO2 34, chloride 109. INR is 1.1 and PTT is 26. Urine toxicology is positive for benzodiazepines and marijuana. Urinalysis, 1+ ketone, 2+ blood, and 1+ protein. ASSESSMENT: 1. Respiratory failure. 2. Seizure. 3. Hypertension. 4. Altered level of consciousness. 5. History of myocardial infarction. PLAN: 1. Continue previous medications. 2. . 3. Pain control. 4. Dietary followup. 5. O2 and pulmonary treatment as needed. 6. OT/ PT. 7. Dietary evaluation. 8. CBC and BMP in the morning. Fausto Saeed D.O. DR: DELILAH JOB#: [id number] CC:
[2018-04-04] VITALS (14 sets, daily range): BP systolic 105–180; BP diastolic 60–98
--- NOTE | 2018-04-04 00:15 | Consultation ---
DATE OF CONSULTATION: 04/03/2018 CARDIOLOGY CONSULTATION CONSULTING PHYSICIAN: Cesar Lewis M.D. REFERRING PHYSICIAN: Fausto Saede D.O. REASON FOR CONSULTATION: Management of accelerated hypertension. 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 The patient started to feel funny and lost his consciousness. According to the witnesses in the [facility], his eyes rolled up and he also had a tongue biting incident. He did not lose incontinence. The patient has history of seizure disorder in the past. Paramedics by mistake thought that the patient has had narcotic overdose and given the patient Narcan. Paramedics found the patient to have pinpoint pupils and therefore Narcan was given. The impression of paramedics was that the patient had a narcotic overdose. The patient had a moment of lucency, however, at the same time, he was combative and not following commands. He was recently restrained and was brought to [facility] for further evaluation and management. Initially, the patient was intubated and was transferred to the intensive care unit, however, he was extubated successfully. He is awake and alert at this time. He denies any prior history of drug use. In fact, the urine drug screen showed no evidence of opiate. Therefore, the paramedics assessment of pinpoint pupil is due to narcotics was absolutely wrong. The patient was probably in postictal confusion. This is his second seizure. At the time of arrival to the hospital, initial blood pressure was 138/75 mmHg and heart rate of 78. However, his blood pressure reached to 219/108 mmHg after he was intubated. Cardiology consultation was made at the request of Dr. Saeed to assess and evaluate possible accelerated hypertension. the patient, diagnosis of hypertension was made about 5 years ago and he had been placed on medication, which he stopped shortly after he started. He is physically active and does not have any complaints of dyspnea on exertion or exertion of chest pain. PAST MEDICAL HISTORY: History of hypertension for which he took medication for some time. PAST SURGICAL HISTORY: None. LIST OF MEDICATIONS: Advil 1 tablet every now and then for headaches. ALLERGIES: No known drug allergies. SOCIAL HISTORY: Denies any tobacco or alcohol. However, he uses occasionally marijuana. REVIEW OF SYSTEMS: A 12-system review done essentially negative except what mentioned in the history of present illness. PHYSICAL EXAMINATION: VITAL SIGNS: At the time of emergency department arrival blood pressure reached to 219/108, heart rate of 64, respirations of 18, and O2 saturation at that time was 100% on mechanical ventilator with FiO2 of 50. Currently vital signs, blood pressure is 169/80, pulse of 64, respirations of 12, and O2 saturation of 100% on room air with a temperature of 98.6 degrees Fahrenheit. The patient is extubated. HEENT: Atraumatic and normocephalic. Anicteric. Pupils are equal, round, and reactive to light and accommodation. Bruises at the tip of the tongue is seen. NECK: JVP less than 5 cm. No carotic bruit. Carotid upstrokes 2+ bilaterally. CARDIOVASCULAR: Normal S1 and S2. Regular rate and rhythm. No murmurs, gallops, or rubs. PMI is at fourth intercostal space at the midclavicular line. LUNGS: Clear to auscultation bilaterally. ABDOMEN: Soft, nontender, and nondistended. No hepatosplenomegaly. Positive bowel sounds. EXTREMITIES: No evidence of edema, clubbing, or cyanosis. DIAGNOSTIC DATA: Chest x-ray left basilar atelectasis. No evidence of pulmonary edema. Some questionable left pleural effusion. A 12-lead electrocardiogram, sinus rhythm at the rate of [address] and T-wave abnormalities. A 2D echocardiography showed normal LV systolic function with LVEF of about 60%, small posterior pericardial effusion, trace mitral regurgitation, grade 1 LV diastolic dysfunction, and right ventricular systolic pressure measured at 44 mmHg consistent with mild pulmonary hypertension. ASSESSMENT AND PLAN: 1. Accelerated hypertension. This could be secondary to stresses following seizure activity and mechanical ventilation for airway protection. We will continue with the monitoring hemodynamics after he settles down. Currently, in the post extubation period. Systolic blood pressure ranging from 150 to 165 mmHg. Given the fact that the patient had prior history of hypertension, I would like to start him on a very low dose beta-blockers. 2. Seizure disorder. This is a recurrent episode that the patient most likely required to be on antiseizure medication, Neurology consultation is required. CT of head was negative. 3. Altered level of consciousness is most likely due to generalized seizure disorder. I would like to stress test that the patient did not have a drug overdose with narcotics as this is the wrong statement mentioned by the paramedics. Drug screen showed no evidence of opiates. The patient, however, showed presence of marijuana in the urine drugs. I would like to thank, Dr. Saeed, for allowing me to participate in the care of this patient. Cesar Lewis M.D. DR: ANTOINETTE JOB#: [id number] CC:
[2018-04-04 06:51] LABS: BASOPHILS % (AUTO) 0.7 % (0.0-2.0); EOSINOPHILS % (AUTO) 0.3 % (0.0-3.0); HEMATOCRIT 43.7 % (42.0-52.0); HEMOGLOBIN 14.7 G/DL (14.2-18.0); LYMPHOCYTES % (AUTO) 18.1 % (20.0-45.0); MEAN CORPUSCULAR VOLUME 97 FL (80-99); MONOCYTES % (AUTO) 7.3 % (1.0-10.0); NEUTROPHILS % (AUTO) 73.6 % (45.0-75.0); PLATELET COUNT 189 K/UL (150-450); RED BLOOD COUNT 4.51 M/UL (4.70-6.10); RED CELL DISTRIBUTION WIDTH 11.9 % (11.6-14.8)
[2018-04-04 06:59] LABS: ANION GAP 6 mmol/L (5-15); BLOOD UREA NITROGEN 6 mg/dL (7-18); CALCIUM 9.5 MG/DL (8.5-10.1); CARBON DIOXIDE 28 MMOL/L (21-32); CHLORIDE 107 MMOL/L (98-107); POTASSIUM 4.1 MMOL/L (3.5-5.1); SODIUM 141 MMOL/L (136-145)
[2018-04-04] MEDS: Atenolol 25mg tab ORAL SCH (08:55)
[2018-04-04] MEDS: Pantoprazole Inj IVP SCH (09:05)
[2018-04-04] MEDS: Heparin 5000 units/ml inj SUBQ SCH (09:07)
--- NOTE | 2018-04-04 09:48 | Pulmonolgy Critical Care Note ---
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 - Objective Last 24 Hour Vital Signs Date Time Temp Pulse Resp B/P (MAP) Pulse Ox O2 Delivery O2 Flow Rate FiO2 04/04/18 08:55 63 145/86 04/04/18 08:45 Room Air 21 04/04/18 08:45 100 Room Air 21 04/04/18 08:44 60 18 Room Air 21 04/04/18 07:00 66 20 160/94 (116) 100 04/04/18 06:00 67 20 142/80 (100) 100 04/04/18 05:00 69 18 140/80 (100) 99 04/04/18 04:00 81 04/04/18 04:00 Nasal Cannula 3.0 04/04/18 04:00 99.0 63 18 142/85 (104) 100 99.0 04/04/18 03:00 63 18 142/91 (108) 100 04/04/18 02:00 66 18 125/85 (98) 100 04/04/18 01:00 62 22 110/60 (77) 100 04/04/18 00:00 Nasal Cannula 3.0 04/04/18 00:00 99.5 65 22 105/65 (78) 100 99.5 04/03/18 23:00 63 22 142/81 (101) 100 04/03/18 22:47 65 22 160/95 (116) 96 04/03/18 22:47 160/95 04/03/18 22:00 65 22 145/82 (103) 96 04/03/18 21:00 72 22 151/93 (112) 96 04/03/18 20:51 Nasal Cannula 2.0 28 04/03/18 20:50 94 Nasal Cannula 2.0 28 04/03/18 20:11 83 134/78 04/03/18 20:00 82 04/03/18 20:00 Nasal Cannula 3.0 04/03/18 20:00 99.6 83 18 135/78 (97) 100 99.6 04/03/18 19:30 89 18 Nasal Cannula 2.0 28 04/03/18 19:00 83 6 150/87 (108) 100 04/03/18 18:00 64 12 169/80 (109) 100 04/03/18 17:00 73 14 169/97 (121) 100 04/03/18 16:00 3.0 04/03/18 16:00 60 04/03/18 16:00 98.6 60 16 160/55 (90) 100 98.6 04/03/18 16:00 Nasal Cannula 3.0 04/03/18 15:00 80 14 151/62 (91) 100 04/03/18 14:00 75 20 166/102 (123) 100 04/03/18 13:00 74 16 151/87 (108) 100 04/03/18 12:00 3.0 04/03/18 12:00 Nasal Cannula 3.0 04/03/18 12:00 75 04/03/18 12:00 98.0 87 16 148/88 (108) 100 98.0 04/03/18 11:00 69 15 162/85 (110) 100 04/03/18 10:00 75 18 134/78 (96) 100 04/03/18 10:00 3.0 04/03/18 09:58 81 18 Nasal Cannula 2.0 28 04/03/18 09:55 Nasal Cannula 2.0 28 Status: awake Condition: critical Neck: full ROM Lungs: clear Heart: HR/BP stable Abdomen: soft, non-tender Extremities: no C/C/E, edema Micro: Microbiology Date/Time Source Procedure Growth Status 04/02/18 21:15 Blood Blood Culture - Preliminary NO GROWTH AFTER 24 HOURS Resulted 04/02/18 21:00 Blood Blood Culture - Preliminary NO GROWTH AFTER 24 HOURS Resulted 04/02/18 21:15 Rectum Received Accucheck: 73 Critical Care - Subjective ROS Limited/Unobtainable: No Interval Events: tolerating extubation FI02: 21 Vent Support Breath Rate: 16 Vent Support Mode: CPAP Vent Tidal Volume: 650 Sputum Amount: None PIP: 24 I&O: Intake and Output 04/03/18 04/04/18 19:00 07:00 Intake Total 1575 ml 975 ml Output Total 1115 ml 1580 ml Balance 460 ml -605 ml Intake Oral 500 ml 150 ml IV Total 1075 ml 825 ml Output Urine Total 1115 ml 1580 ml ET-Tube: 7.5 ET Position: 25 Labs: Laboratory Tests Test 04/03/18 12:20 04/03/18 20:15 04/04/18 06:01 Arterial Blood pH 7.383 (7.350-7.450) Arterial Blood Partial Pressure CO2 39.8 mmHg (35.0-45.0) Arterial Blood Partial Pressure O2 97.5 mmHg (75.0-100.0) Arterial Blood HCO3 23.2 mmol/L (22.0-26.0) Arterial Blood Oxygen Saturation 97.0 % (92.0-98.0) Arterial Blood Base Excess -1.7 Suman Test Positive Magnesium Level 1.8 MG/DL (1.8-2.4) White Blood Count 9.0 K/UL (4.8-10.8) # Red Blood Count 4.51 M/UL (4.70-6.10) L Hemoglobin 14.7 G/DL (14.2-18.0) Hematocrit 43.7 % (42.0-52.0) Mean Corpuscular Volume 97 FL (80-99) Mean Corpuscular Hemoglobin 32.5 PG (27.0-31.0) H Mean Corpuscular Hemoglobin Concent 33.6 G/DL (32.0-36.0) Red Cell Distribution Width 11.9 % (11.6-14.8) Platelet Count 189 K/UL (150-450) Mean Platelet Volume 6.1 FL (6.5-10.1) L Neutrophils (%) (Auto) 73.6 % (45.0-75.0) Lymphocytes (%) (Auto) 18.1 % (20.0-45.0) L Monocytes (%) (Auto) 7.3 % (1.0-10.0) Eosinophils (%) (Auto) 0.3 % (0.0-3.0) Basophils (%) (Auto) 0.7 % (0.0-2.0) Sodium Level 141 MMOL/L (136-145) Potassium Level 4.1 MMOL/L (3.5-5.1) Chloride Level 107 MMOL/L (98-107) Carbon Dioxide Level 28 MMOL/L (21-32) Anion Gap 6 mmol/L (5-15) Blood Urea Nitrogen 6 mg/dL (7-18) L Creatinine 1.0 MG/DL (0.55-1.30) Estimat Glomerular Filtration Rate > 60 mL/min (>60) Glucose Level 103 MG/DL (74-106) Calcium Level 9.5 MG/DL (8.5-10.1) Aleshia Ya MD Apr 04, 2018 09:48
--- NOTE | 2018-04-04 09:57 | Cardiology Report ---
APPROVED REPORT EXAM: Two-dimensional and M-mode echocardiogram with Doppler and color Doppler. INDICATION LV FUNCTION M-Mode DIMENSIONS IVSd1.0 (0.7-1.1cm)Left Atrium (MM)3.4 (1.6-4.0cm) LVDd4.6 (3.5-5.6cm)Aortic Root3.2 (2.0-3.7cm) PWd1.2 (0.7-1.1cm)Aortic Cusp Exc.1.8 (1.5-2.0cm) IVSs1.9 cm LVDs2.6 (2.5-4.0cm) PWs1.8 cm Normal left ventricular chamber size, systolic function and wall motion. Left ventricular ejection fraction estimated to be 60 %. No evidence of left ventricular hypertrophy. Small posterior pericardial effusion. All other cardiac chamber sizes are within normal limits. Focal aortic valve sclerosis with adequate cusp excursion. Thickened mitral valve leaflets with normal excursion. Mitral annulus and aortic root calcification. Normal pulmonic valve structure. Normal tricuspid valve structure. IVC at normal size with physiologic collapse. A color flow and spectral Doppler study was performed and revealed: No aortic regurgitation. Trace mitral regurgitation.. Mitral diastolic velocities suggest reduced left ventricular relaxation c/w mild LV diastolic dysfunction (Grade I ). Trace tricuspid regurgitation. Tricuspid systolic velocities suggests peak right ventricular systolic pressure of 44 mmHg,consistent with mild pulmonary hypertension.
[2018-04-04] MEDS ORDERED: Nitroglycerin Subl 0.4mg tab SL PRN (10:30)
[2018-04-04] MEDS ORDERED: LORazepam Inj 2mg/ml 1ml IV PRN (10:45)
[2018-04-04] MEDS ORDERED: Morphine Sulfate 4mg/ml Inj (IV USE ONLY) IVP PRN (10:45)
[2018-04-04] MEDS ORDERED: Albuterol/Ipratropium 3ml neb HHN PRN (11:00)
[2018-04-04] MEDS ORDERED: D5 1/2NS 1,000 ML IV SCH (11:00)
[2018-04-04] MEDS ORDERED: Gadavist 7.5mMol/7.5ml vial IV PRN (12:45)
--- NOTE | 2018-04-04 13:13 | Consultation ---
Consult Note Consult Note NEUROLOGY CONSULTATION: Full note dictated #[id number] y/o, RH, BM with PH of head trauma as a 11 year old, and episodic HTN. On 03/17/18 was at his [employer] shop was getting up to get some OJ and suddenly lost consciousness, fell down and then had a GTC seizure with tongue biting. Was taken to [facility] and left AMA. Of note is that the night before he had left upper extremity numbness. On 04/02/18 he was again at his [employer] shop was going to sit in a chair and suddenly lost consciousness, fell down and then had a GTC seizure. The paramedics were called in and he was noted to be unconscious with pin point pupils. He was given Narcan and then Versed and [place] [facility] [place] for respiratory protection. ON EXAM: Trace left VII central. Brisker left DTRs. IMPRESSION: 1. Two new onset GTC seizures with the first one preceded by left UE tingling. 2. CT with right posterior frontal encephalomalacia. 3. Suspect focal seizure with secondary generalization. REC: 1. Seizure hygiene. 2. NO licit or illicit drug use. 3. Keppra 750 mg PO q 12 H. 4. Labs for Sz. 5. MRI of brain without and with contrast. 6. EEG. Augie Rodríguez M.D., M.S.P.H. AUGIE RODRÍGUEZ Apr 04, 2018 13:13
[2018-04-04] MEDS ORDERED: KEPPRA500 MG ORAL (13:23)
--- NOTE | 2018-04-04 13:39 | General Progress Note ---
Assessment/Plan Problem List: (1) Acute respiratory failure ICD Codes: J96.00 - Acute respiratory failure, unspecified whether with hypoxia or hypercapnia SNOMED: 44968240 (2) Acute encephalopathy ICD Codes: G93.40 - Encephalopathy, unspecified SNOMED: 71132817, 261811016 (3) Seizure ICD Codes: R56.9 - Unspecified convulsions SNOMED: 60226797 (4) Altered level of consciousness ICD Codes: R40.4 - Transient alteration of awareness SNOMED: 5203346 (5) HTN (hypertension) ICD Codes: I10 - Essential (primary) hypertension SNOMED: 72781644 Status: stable, progressing Assessment/Plan seizure and bp control neuro work up cbc bmp am Subjective Constitutional: Reports: weakness Allergies: Coded Allergies: UNABLE TO ASSESS (Unverified , 04/02/18) All Systems: reviewed and negative except above Subjective calm in bed, no seizures last nigh Objective Last 24 Hour Vital Signs Date Time Temp Pulse Resp B/P (MAP) Pulse Ox O2 Delivery O2 Flow Rate FiO2 04/04/18 12:00 99.2 70 18 156/95 (115) 98 99.2 04/04/18 10:00 62 20 135/85 (102) 100 04/04/18 09:00 98.9 66 20 130/95 (107) 100 98.9 04/04/18 08:55 63 145/86 04/04/18 08:45 Room Air 21 04/04/18 08:45 100 Room Air 21 04/04/18 08:44 60 18 Room Air 21 04/04/18 08:30 65 20 132/95 (107) 100 04/04/18 08:00 68 18 145/86 (105) 100 04/04/18 08:00 Nasal Cannula 3.0 04/04/18 08:00 70 04/04/18 07:00 66 20 160/94 (116) 100 04/04/18 06:00 67 20 142/80 (100) 100 04/04/18 05:00 69 18 140/80 (100) 99 04/04/18 04:00 81 04/04/18 04:00 Nasal Cannula 3.0 04/04/18 04:00 99.0 63 18 142/85 (104) 100 99.0 04/04/18 03:00 63 18 142/91 (108) 100 04/04/18 02:00 66 18 125/85 (98) 100 04/04/18 01:00 62 22 110/60 (77) 100 04/04/18 00:00 Nasal Cannula 3.0 04/04/18 00:00 99.5 65 22 105/65 (78) 100 99.5 04/03/18 23:00 63 22 142/81 (101) 100 04/03/18 22:47 65 22 160/95 (116) 96 04/03/18 22:47 160/95 04/03/18 22:00 65 22 145/82 (103) 96 04/03/18 21:00 72 22 151/93 (112) 96 04/03/18 20:51 Nasal Cannula 2.0 28 04/03/18 20:50 94 Nasal Cannula 2.0 28 04/03/18 20:11 83 134/78 04/03/18 20:00 82 04/03/18 20:00 Nasal Cannula 3.0 04/03/18 20:00 99.6 83 18 135/78 (97) 100 99.6 04/03/18 19:30 89 18 Nasal Cannula 2.0 28 04/03/18 19:00 83 6 150/87 (108) 100 04/03/18 18:00 64 12 169/80 (109) 100 04/03/18 17:00 73 14 169/97 (121) 100 04/03/18 16:00 3.0 04/03/18 16:00 60 04/03/18 16:00 98.6 60 16 160/55 (90) 100 98.6 04/03/18 16:00 Nasal Cannula 3.0 04/03/18 15:00 80 14 151/62 (91) 100 04/03/18 14:00 75 20 166/102 (123) 100 Intake and Output 04/03/18 04/04/18 19:00 07:00 Intake Total 1575 ml 975 ml Output Total 1115 ml 1580 ml Balance 460 ml -605 ml Intake Oral 500 ml 150 ml IV Total 1075 ml 825 ml Output Urine Total 1115 ml 1580 ml Laboratory Tests 04/03/18 20:15: Magnesium Level 1.8 04/04/18 06:00: Hemoglobin A1c 4.7, Vitamin B12 Level [Pending], Folate [Pending], Thyroid Stimulating Hormone (TSH) 1.061 04/04/18 06:01: White Blood Count 9.0#, Red Blood Count 4.51L, Hemoglobin 14.7, Hematocrit 43.7 , Mean Corpuscular Volume 97, Mean Corpuscular Hemoglobin 32.5H, Mean Corpuscular Hemoglobin Concent 33.6, Red Cell Distribution Width 11.9, Platelet Count 189, Mean Platelet Volume 6.1L, Neutrophils (%) (Auto) 73.6, Lymphocytes ( %) (Auto) 18.1L, Monocytes (%) (Auto) 7.3, Eosinophils (%) (Auto) 0.3, Basophils (%) (Auto) 0.7, Sodium Level 141, Potassium Level 4.1, Chloride Level 107, Carbon Dioxide Level 28, Anion Gap 6, Blood Urea Nitrogen 6L, Creatinine 1.0, Estimat Glomerular Filtration Rate > 60, Glucose Level 103, Calcium Level 9.5 Height (Feet): 5 Height (Inches): 8.00 Weight (Pounds): 169 General Appearance: alert EENT: normal ENT inspection Neck: normal alignment Cardiovascular: normal peripheral pulses, normal rate, regular rhythm Respiratory/Chest: chest wall non-tender, lungs clear, normal breath sounds Abdomen: normal bowel sounds, non tender, soft Extremities: normal inspection Edema: no edema noted Arm (L), no edema noted Arm (R), no edema noted Leg (L), no edema noted Leg (R), no edema noted Pedal (L), no edema noted Pedal (R), no edema noted Generalized Neurologic: responsive, motor weakness Skin: normal pigmentation, warm/dry Fausto Saeed DO Apr 04, 2018 13:39
--- NOTE | 2018-04-04 16:27 | Diagnostic Imaging Report ---
Indication: Seizure. Dizziness headache Technique: The head was imaged in a 1.5 Jacinta magnet. Sequences obtained include sagittal and axial T1 FLAIR, axial T2 fast spin echo with fat saturation, axial T2 FLAIR, diffusion and ADC map. Coronal T2 FLAIR and high-resolution T1 FSPGR obtained through the hippocampus. Gadolinium-enhanced axial and coronal T1 FLAIR obtained also. Comparison: None Findings: Mild, nonspecific T2 hyperintensity noted within white matter. This may be due to chronic small vessel disease. No abnormal enhancement is identified. There is evidence of basilar invagination with high riding dens and ill definition of the anterior arch of C1 which is not visualized. There is marked heterogeneity of the lower aspect of the clivus which overlaps the dens. Consequently the dens is displaced posteriorly and results in significant compression of the cervical medullary junction which is tented posteriorly. This is a chronic finding and is most likely long-standing. There is no evidence of edema within the brainstem or upper cervical cord. There is no bone marrow edema definitely identified. Evaluation with cervical spine series or CT cervical spine may be of benefit to elucidate the bony anatomy. The visualized part of the upper cervical cord appears to show a central area of fluid attenuation consistent with a syrinx. There is no restricted diffusion. Unger-white differentiation is normal. There is no mass effect, midline shift, edema, or hemorrhage. There are no abnormal extra-axial or intra-axial fluid collections. Coronal sequences demonstrate normal appearance of the hippocampus which appear symmetric. The corpus callosum and sella are unremarkable. The brainstem and cerebellum are unremarkable. Bone marrow signal within the visualized osseous structures appears age appropriate and unremarkable otherwise. 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 The findings are chronic and long-standing. Nevertheless, findings may be symptomatic. Please correlate clinically. Further evaluation with CT of the cervical spine may be of benefit and is recommended. No mass effect, edema, evidence of acute CVA or intracranial hemorrhage identified. Evidence of chronic small vessel disease involving white matter tracts. Motion artifact
[2018-04-04] MEDS ORDERED: D5NS 1000ml IV ONE (19:09)
[2018-04-04] MEDS ORDERED: D5 1/2NS 1000ml IV ONE ×2 (19:09)
[2018-04-04] MEDS ORDERED: Heparin 5000 units/ml inj SUBQ SCH (21:00)
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
--- NOTE | 2018-04-04 22:07 | Cardiology Progress Note ---
Assessment/Plan Assessment/Plan 1. Accelerated hypertension, continue atenolol, home BP monitoring, salt restriction. 2. Seizure disorder on Keppra. 3. Altered level of consciousness is most likely due to generalized seizure disorder. Subjective Subjective Transferred out of the ICU. No cardiac events. Objective Last 24 Hour Vital Signs Date Time Temp Pulse Resp B/P (MAP) Pulse Ox O2 Delivery O2 Flow Rate FiO2 04/04/18 16:00 99.0 20 152/98 (116) 98 99.0 04/04/18 12:00 99.2 70 18 156/95 (115) 98 99.2 04/04/18 10:00 62 20 135/85 (102) 100 04/04/18 09:00 98.9 66 20 130/95 (107) 100 98.9 04/04/18 08:55 63 145/86 04/04/18 08:45 Room Air 21 04/04/18 08:45 100 Room Air 21 04/04/18 08:44 60 18 Room Air 21 04/04/18 08:30 65 20 132/95 (107) 100 04/04/18 08:00 68 18 145/86 (105) 100 04/04/18 08:00 Nasal Cannula 3.0 04/04/18 08:00 70 04/04/18 07:00 66 20 160/94 (116) 100 04/04/18 06:00 67 20 142/80 (100) 100 04/04/18 05:00 69 18 140/80 (100) 99 04/04/18 04:00 81 04/04/18 04:00 Nasal Cannula 3.0 04/04/18 04:00 99.0 63 18 142/85 (104) 100 99.0 04/04/18 03:00 63 18 142/91 (108) 100 04/04/18 02:00 66 18 125/85 (98) 100 04/04/18 01:00 62 22 110/60 (77) 100 04/04/18 00:00 Nasal Cannula 3.0 04/04/18 00:00 99.5 65 22 105/65 (78) 100 99.5 04/03/18 23:00 63 22 142/81 (101) 100 04/03/18 22:47 65 22 160/95 (116) 96 04/03/18 22:47 160/95 Intake and Output 04/03/18 04/04/18 19:00 07:00 Intake Total 1575 ml 975 ml Output Total 1115 ml 1580 ml Balance 460 ml -605 ml Intake Oral 500 ml 150 ml IV Total 1075 ml 825 ml Output Urine Total 1115 ml 1580 ml 2D Echo: LVEF 60%, Small Pericardial Eff., RVSp 44 mmHg Laboratory Tests Test 04/04/18 06:00 04/04/18 06:01 04/04/18 11:30 Hemoglobin A1c 4.7 % (4.3-6.0) Vitamin B12 Level 240 PG/ML (193-986) Folate 6.8 NG/ML (8.6-58.9) L Thyroid Stimulating Hormone (TSH) 1.061 uiU/mL (0.358-3.740) White Blood Count 9.0 K/UL (4.8-10.8) # Red Blood Count 4.51 M/UL (4.70-6.10) L Hemoglobin 14.7 G/DL (14.2-18.0) Hematocrit 43.7 % (42.0-52.0) Mean Corpuscular Volume 97 FL (80-99) Mean Corpuscular Hemoglobin 32.5 PG (27.0-31.0) H Mean Corpuscular Hemoglobin Concent 33.6 G/DL (32.0-36.0) Red Cell Distribution Width 11.9 % (11.6-14.8) Platelet Count 189 K/UL (150-450) Mean Platelet Volume 6.1 FL (6.5-10.1) L Neutrophils (%) (Auto) 73.6 % (45.0-75.0) Lymphocytes (%) (Auto) 18.1 % (20.0-45.0) L Monocytes (%) (Auto) 7.3 % (1.0-10.0) Eosinophils (%) (Auto) 0.3 % (0.0-3.0) Basophils (%) (Auto) 0.7 % (0.0-2.0) Sodium Level 141 MMOL/L (136-145) Potassium Level 4.1 MMOL/L (3.5-5.1) Chloride Level 107 MMOL/L (98-107) Carbon Dioxide Level 28 MMOL/L (21-32) Anion Gap 6 mmol/L (5-15) Blood Urea Nitrogen 6 mg/dL (7-18) L Creatinine 1.0 MG/DL (0.55-1.30) Estimat Glomerular Filtration Rate > 60 mL/min (>60) Glucose Level 103 MG/DL (74-106) Calcium Level 9.5 MG/DL (8.5-10.1) Vitamin D 25-Hydroxy Pending 25-Hydroxy Vitamin D2 Pending 25-Hydroxy Vitamin D3 Pending Rapid Plasma Reagin Pending Microbiology Date/Time Source Procedure Growth Status 04/02/18 21:15 Blood Blood Culture - Preliminary NO GROWTH AFTER 24 HOURS Resulted 04/02/18 21:00 Blood Blood Culture - Preliminary NO GROWTH AFTER 24 HOURS Resulted 04/02/18 21:15 Rectum Received Objective HEENT: Atraumatic and normocephalic. Anicteric. Pupils are equal, round, and reactive to light and accommodation. Bruises at the tip of the tongue is seen. NECK: JVP less than 5 cm. No carotic bruit. Carotid upstrokes 2+ bilaterally. CARDIOVASCULAR: Normal S1 and S2. Regular rate and rhythm. No murmurs, gallops, or rubs. PMI is at fourth intercostal space at the midclavicular line. LUNGS: Clear to auscultation bilaterally. ABDOMEN: Soft, nontender, and nondistended. No hepatosplenomegaly. Positive bowel sounds. EXTREMITIES: No evidence of edema, clubbing, or cyanosis. Cesar Lewis MD Apr 04, 2018 22:07
[2018-04-05] MEDS ORDERED: Pantoprazole Inj IVP SCH (09:00)
[2018-04-05] MEDS ORDERED: Atenolol 25mg tab ORAL SCH (09:00)
--- NOTE | 2018-04-07 11:48 | Discharge Summary ---
Discharge Summary Discharge Summary _ DATE OF ADMISSION: 04/02/2018 DATE OF DISCHARGE: 04/04/2018 REASON FOR ADMISSION: 53 years old male with past medical history of hypertension, seizure disorder , was brought to emergency room for evaluation after he was found unresponsive in the [facility]. Patient lost his consciousness. According to the witness s in the [facility], his eyes rolled off and he had tongue biting incident. No incontinence. Upon evaluation in emergency department vital signs were stable. However, the patient was in stupor and was orally intubated for airway protection. Laboratory workup revealed no leukocytosis, stable hemoglobin and hematocrit , stable electrolytes Stable renal parameters. Glucose 91. Troponin negative EKG revealed no acute ischemic changes. Urinalysis revealed no evidence of UTI. Urine toxicology screen was positive for benzodiazepine and marijuana. CT of the head revealed no acute intracranial pathology. Chest x-ray revealed no acute cardiopulmonary pathology , status post satisfactory endotracheal intubation. Patient was admitted with diagnoses of altered level of consciousness, seizure disorder, acute respiratory failure. CONSULTANTS: advanced solutions architect Dr. Lewis neurologist [facility]: Patient admitted to ICU. Ventilator support and pulmonary toilet provided. Patient was subsequently extubated as he regained his mental status. Pulse oximetry was stable on room air. Acute encephalopathy was likely secondary to seizure episode . Patient was loaded with Keppra in emergency department . Seizure precautions maintained, no further episodes of seizure activity. Neurologist seen and evaluated patient, and started patient on Keppra . Patient was educated on seizure hygiene. Patient was counseled to avoid illicit street drugs. MRI of the brain revealed no acute intracranial pathology, but showed chronic changes of posterior frontal area consistent with encephalomalacia. According to neurologist , patient history and neurological examination were most compatible with generalized tonic-clonic seizure disorder. Other treatable causes of seizure were monitored. Hemoglobin A1c within normal limits- 4.7 RPR nonreactive. B12 within normal limits , low folate level. Patient started on folate supplement. Manager Copy seen the patient patient due to elevated blood pressure. Blood pressure was managed with beta jacqueline. Echocardiogram revealed preserved ejection fraction of 60% and right ventricular systolic pressure of 44 consistent with mild pulmonary hypertension. Carotid duplex was essentially negative. Swallow evaluation was done and diet was provided as per speech therapist recommendations with strict aspiration/reflux precautions. Patient was working with physical and occupational therapists. DVT and GI prophylaxis provided. Dietary recommendations implemented in plan of care. Supportive care provided. Pain management provided. Patient stabilized and was ready for discharge home. FINAL DIAGNOSES: Acute respiratory failure requiring intubation ( for airway protection) , status post extubation Acute encephalopathy ( likely due to seizure), -resolved Accelerated hypertension, stabilized Generalized tonic clonic seizure disorder DISCHARGE MEDICATIONS: See Medication Reconciliation list. DISCHARGE INSTRUCTIONS: Patient was discharged home Follow up with primary care provider in one week. I have been assigned to dictate discharge summary for this account. I was not involved in the patient's management. Suzanne Agiular NP Apr 07, 2018 11:47
== END 2018-04-04 19:10 | disposition home or self-care (01) | DRG 100 ==
LOC: EDBD 17:16 → EMR 18:18 → ICU 18:20 → EDBEDREQ 19:18 → 4E 04-04 10:13
PROC: 0BH17EZ Insertion of Endotracheal Airway into Trachea, Via Natural or Artificial Opening (ICD-10-PCS; principal; 2018-04-02)
PROC: 5A1935Z Respiratory Ventilation, Less than 24 Consecutive Hours (ICD-10-PCS; principal; 2018-04-02)
DX: G40.409 Other generalized epilepsy and epileptic syndromes, not intractable, without status epilepticus (principal); J96.00 Acute respiratory failure, unspecified whether with hypoxia or hypercapnia; G93.40 Encephalopathy, unspecified; I10 Essential (primary) hypertension; Z87.820 Personal history of traumatic brain injury; I27.20 Pulmonary hypertension, unspecified; I25.2 Old myocardial infarction; Z88.0 Allergy status to penicillin
CPT/HCPCS: 31500; 36415; 36600; 70450; 70553; 71045; 80048; 80053; 80076; 80307; 80329; 81003; 82306; 82550; 82607; 82746; 82803; 83036; 83615; 83735; 84100; 84443; 84478; 84484; 85025; 85610; 85730; 86592; 87040; 87081; 93005; 93306; 93880; 94002; 94003; 94664; 94760; 97803; 99291; A9585; J2250; J8499